=== PATIENT | female | born 1935 | race Two or more races ===

== ENCOUNTER 2018-01-01 13:23 | Outpatient (CLI) | payer OTHER ==
[~2018-01-01 13:23] MED LIST: AVAPRO150 MG; BENTYL10 MG/ML; CALTRATE 600600 MG; CIPRO500 MG; COZAAR25 MG; NORTUSS-EX LIQ118 ML PO; OSEL75CA PO; SYNTHROID50 MCG; ZITHROMAX TRI-500 MG PO; ZOCOR20 MG
== END 2018-01-01 14:00 | disposition home or self-care (01) ==
LOC: NUCLEAR 13:23
DX: M81.0 Age-related osteoporosis without current pathological fracture (principal)

== ENCOUNTER 2018-04-27 12:13 | Inpatient (IN) | payer OTHER ==
[~2018-04-27] VITALS: Ht 160 cm; Wt 58.1 kg
[2018-04-27] MEDS ORDERED: CIPRO XR 500 M500 MG (13:04)
[2018-04-27] MEDS ORDERED: BENTYL10 MG/1 ML (13:04)
[2018-04-27] MEDS ORDERED: SYNTHROID (13:08)
== END 2018-05-05 11:37 | disposition home or self-care (01) | DRG 690 ==
LOC: ER 12:13 → SURH 17:47
PROC: BT41ZZZ Ultrasonography of Right Kidney (ICD-10-PCS; principal; 2018-04-28)
PROC: BW21ZZZ Computerized Tomography (CT Scan) of Abdomen and Pelvis (ICD-10-PCS; 2018-05-01)
DX: N13.6 Pyonephrosis (principal); N10 Acute pyelonephritis; N17.8 Other acute kidney failure; B96.29 Other Escherichia coli [E. coli] as the cause of diseases classified elsewhere; K58.8 Other irritable bowel syndrome; E03.8 Other specified hypothyroidism; I10 Essential (primary) hypertension; E78.49 Other hyperlipidemia; I25.10 Atherosclerotic heart disease of native coronary artery without angina pectoris; Z88.2 Allergy status to sulfonamides

== ENCOUNTER 2020-03-21 11:34 | Outpatient (CLI) | payer OTHER ==
[~2020-03-21 11:34] MED LIST changes: +BENTYL10 MG/1 ML; +CIPRO XR 500 M500 MG; +SYNTHROID
== END 2020-03-21 11:46 | disposition home or self-care (01) ==
LOC: NUCLEAR 11:34
PROVIDERS: ATTEND Internal Medicine
DX: M81.0 Age-related osteoporosis without current pathological fracture (principal)

== ENCOUNTER 2020-03-21 12:33 | Outpatient (CLI) | payer OTHER | END 2020-03-21 12:38 | disposition home or self-care (01) | LOC: RAD 12:33 | PROVIDERS: ATTEND Internal Medicine | DX: M25.552 Pain in left hip (principal); M25.551 Pain in right hip ==

== ENCOUNTER 2020-10-09 08:35 | Outpatient (CLI) | payer OTHER | END 2020-10-09 08:42 | disposition home or self-care (01) | LOC: SONOGRAMA 08:35 → MAMO-SONO 08:45 | PROVIDERS: ATTEND Internal Medicine Rheumatology | DX: D35.1 Benign neoplasm of parathyroid gland (principal); E03.8 Other specified hypothyroidism ==